=== PATIENT | female | born 1950 | race Caucasian/White ===

== ENCOUNTER 2023-06-19 14:15 | Inpatient (IN) | payer MEDICARE, OTHER ==
[~2023-06-19] VITALS: Ht 162.6 cm; Wt 119.0 kg
[2023-06-19 14:47] LABS: COLLECTION METHOD CATHETER
[2023-06-19 14:55] LABS: BASO # 0.1 K/mm3 (0.0-0.2); BASO % 0.7 % (0.0-2.0); EOS # 0.1 K/mm3 (0.0-0.7); EOS % 0.8 % (0.0-4.0); GRAN % 70.1 % (42.2-75.2); HEMATOCRIT 39.6 % (37.0-47.0); HEMOGLOBIN 12.5 g/dl (12.5-16.0); LYMPH % 22.7 % (20.0-51.0); MEAN CELL VOLUME 91 fl (80.0-100.0); MEAN CORPUSCULAR HEMOGLOBIN 29 pg (27-31); MEAN CORPUSCULAR HGB CONC 32 g/dl (33.0-37.0); MEAN PLATELET VOLUME 11.5 fl (7.4-10.4); MONO # 0.5 K/mm3 (0.1-0.6); MONO % 5.5 % (1.7-9.3); PLATELET COUNT 235 K/mm3 (130-400); RED BLOOD COUNT 4.34 M/mm3 (4.10-5.30); REDCELL DISTRIBUTION WIDTH-CV 13.6 % (11.5-14.5)
[2023-06-19] MEDS ORDERED: Ondansetron 4 MG/2 ML VIAL IV ONE (15:00)
[2023-06-19] MEDS ORDERED: Morphine 4 MG/ML VIAL IV ONE (15:00)
[2023-06-19 15:01] LABS: PH 6.5 (5.0-8.5); URINE APPEARANCE Hazy (CLEAR/HAZY); URINE COLOR Yellow (YELLOW); URINE GLUCOSE 1+ (NEGATIVE); URINE KETONE 1+ (NEGATIVE); URINE NITRATE Positive (NEGATIVE); URINE PROTEIN(semi-quant) Negative (NEGATIVE)
[2023-06-19 15:02] LABS: SQUAMOUS EPITHELIAL 0-2 /hpf (0-10); URINE BACTERIA Moderate /hpf (NONE SEEN); URINE BLOOD 3+ (NEGATIVE)
[2023-06-19 15:08] LABS: ALBUMIN 3.1 gm/dL (3.4-4.8); BILIRUBIN,TOTAL 0.3 mg/dL (0.2-1.2); CALCIUM 9.3 mg/dL (8.4-10.2); CREATININE, serum 0.87 mg/dL (0.57-1.11); TOTAL PROTEIN 8.3 gm/dL (6.2-8.1)
[2023-06-19] MEDS ORDERED: NS 1,000 ML IV ONE (15:30)
[2023-06-19] MEDS ORDERED: cefTRIAXone 1 G in Water For Injection,Sterile 10 ML IV ONE (15:30)
[2023-06-19] MEDS ORDERED: Acetaminophen 325 MG TAB PO ONE (16:15)
[2023-06-19] MEDS ORDERED: metroNIDAZOLE 100 ML IV ONE (16:30)
[2023-06-19] MEDS ORDERED: COZAAR100 MG PO (17:21)
[2023-06-19] MEDS ORDERED: TOPROL XL100 MG PO (17:21)
[2023-06-19 18:07] VITALS: BP 127/76; PULSE 127; TEMP 98.7
[2023-06-19] MEDS ORDERED: *Potassium Replacement Protocol MC SCH (18:30)
[2023-06-19 18:42] VITALS: BP_SYST 127
[2023-06-19 20:00] VITALS: BP 96/54; PULSE 116; TEMP 98.4
--- NOTE | 2023-06-19 20:45 | NUR ---
Pt. laying in bed. Pt. is A&OX3, assessment complete. INT to lt. hand patent. Pt. denies pain or other needs, call light within reach.
[2023-06-19 21:00] VITALS: BP_SYST 107
[2023-06-19 23:21] VITALS: BP 92/55; PULSE 109; TEMP 100
[2023-06-20] VITALS (12 sets, daily range): BP systolic 98–122; BP diastolic 60–74; PULSE 84–116; TEMP 98.4–102.5
--- NOTE | 2023-06-20 03:41 | NUR ---
ANU Moody notified of pt.'s vital signs. Informed that he would review the chart and add orders.
[2023-06-20] MEDS ORDERED: Acetaminophen 325 MG TAB PO PRN (03:45)
[2023-06-20 06:46] LABS: BASO % 0.3 % (0.0-2.0); EOS # 0.1 K/mm3 (0.0-0.7); EOS % 0.4 % (0.0-4.0); GRAN # 11.1 K/mm3 (1.4-6.5); GRAN % 83.4 % (42.2-75.2); HEMOGLOBIN 10.8 g/dl (12.5-16.0); LYMPH # 1.4 K/mm3 (1.2-3.4); LYMPH % 10.6 % (20.0-51.0); MEAN CELL VOLUME 89 fl (80.0-100.0); MEAN CORPUSCULAR HEMOGLOBIN 29 pg (27-31); MEAN CORPUSCULAR HGB CONC 33 g/dl (33.0-37.0); MEAN PLATELET VOLUME 10.1 fl (7.4-10.4); MONO # 0.7 K/mm3 (0.1-0.6); MONO % 4.9 % (1.7-9.3); PLATELET COUNT 175 K/mm3 (130-400); RED BLOOD COUNT 3.73 M/mm3 (4.10-5.30)
[2023-06-20 06:54] LABS: HEMATOCRIT 33.1 % (37.0-47.0)
[2023-06-20 07:08] LABS: ALBUMIN 2.4 gm/dL (3.4-4.8); CALCIUM 8.3 mg/dL (8.4-10.2); CREATININE, serum 0.81 mg/dL (0.57-1.11); MAGNESIUM 1.6 mg/dL (1.6-2.6); POTASSIUM 4.1 mmol/L (3.5-4.5)
[2023-06-20] MEDS ORDERED: Metoclopramide 10 MG TAB PO SCH (08:00)
[2023-06-20] MEDS ORDERED: Famotidine 20 MG TAB PO SCH (08:00)
[2023-06-20] MEDS ORDERED: LR 1,000 ML IV SCH (08:00)
[2023-06-20] MEDS ORDERED: Influenza Virus Vaccine, Hi-Dose Quad '23-24 (65 YR+) 0.7 ML SYRINGE IM SCH (09:00)
--- NOTE | 2023-06-20 09:21 | NUR ---
Wool Hat Finisher attended clinical rounds with the team. TYRA spoke with PT who recommend SNF vs Home Health. SW met with patient to discuss discharge planning. Patient lives alone in [place], but advised her daughter, Karyn lives nearby and checks on her as often as needed. Patient goes to [facility] for primary care and has medications mailed to her home by [employer]. Patient has a rollator and cane that she uses for ambulation. Patient also reported that she uses an office chair to scoot around her home. Patient's bathroom includes grab bars in the bathtub, a tub transfer bench, and handheld shower head. Patient also has a ramp into the home. Patient advised she is independent with transfers, toileting, bathing, and dressing. Patient has groceries delivered to the home. Patient believes she has completed DPOA-HC designating her daughters, Karyn and Bernadette (ph#[phone]). SW discussed PT recommendation for SNF vs HH. Patient is not sure what she wants to do and would like to consider her options. SW provided Medicare.gov list of SNF and HH options for review. Discharge Plan: TBD
[2023-06-20] MEDS ORDERED: Ondansetron 4 MG/2 ML VIAL IV ONE (12:28)
[2023-06-20] MEDS ORDERED: NS 10 ML VIAL IV ONE (12:28)
[2023-06-20] MEDS ORDERED: CENTRUM SILVER CHEW PO (13:22)
[2023-06-20] MEDS ORDERED: THE MEDICINE S200 M2 PO (13:22)
[2023-06-20] MEDS ORDERED: OMEGA-3 1000 MG1 CAP PO (13:23)
[2023-06-20] MEDS ORDERED: [UNRECOGNIZED DRUG - OTHER] PO (13:24)
[2023-06-20] MEDS ORDERED: cefTRIAXone 1 G in Water For Injection,Sterile 10 ML IV SCH (15:00)
[2023-06-20] MEDS ORDERED: cefTRIAXone 2 G in Water For Injection,Sterile 20 ML IV SCH (16:00)
--- NOTE | 2023-06-20 18:00 | NUR ---
ENDOSCOPY CAME UP TO GET THE PATIENT FOR PROCEDURE. PATIENT WAS ASSISTED FROM RECLINER TO BED X3 ASSIST, USED GAITBELT. PATIENT SIGNED CONSENT FORMS AND WAS SENT DOWN TO OR WITH MARITZA HILLSSTRETCHER LEVELER OPERATOR
[2023-06-20] MEDS ORDERED: fentaNYL 50 MCG/ML 2 ML VIAL ONE (18:12)
[2023-06-20] MEDS ORDERED: Meperidine 50 MG/ML 1 ML VIAL IV PRN (18:30)
[2023-06-20] MEDS ORDERED: HYDROmorphone 2 MG/1 ML VIAL IV PRN (18:30)
[2023-06-20] MEDS ORDERED: Ondansetron 4 MG/2 ML VIAL IV PRN (18:30)
[2023-06-20] MEDS ORDERED: fentaNYL 50 MCG/ML 2 ML VIAL IV PRN (18:30)
[2023-06-20] MEDS ORDERED: droPERidol 2.5 MG/ML 2 ML VIAL IV PRN (18:30)
[2023-06-20] MEDS ORDERED: hydrALAZINE 20 MG/ML 1 ML VIAL IV PRN (18:30)
[2023-06-20] MEDS ORDERED: Morphine 4 MG/ML VIAL IV PRN (18:30)
[2023-06-20] MEDS ORDERED: Iohexol 350 - 100 ML VIAL URETER -L ONE (19:06)
[2023-06-20] MEDS ORDERED: Lidocaine 2% (20 MG/ML) 20 ML UROJET UR ONE (19:11)
--- NOTE | 2023-06-20 20:00 | NUR ---
PATIENT BACK ON UNIT FROM [facility] "RADHA" IS AXO X4 AND VS WNL. TELE IS WNL. PUREWICK PLACED AND TETHER FOR STINT GLUED AND INTACT. URINE IS CLEAR AND YELLOW. RADHA DENIES ANY PAIN AT THIS TIME AND IS REQUESTING A SANDWHICH BOX.
[2023-06-20] MEDS ORDERED: Furosemide 40 MG/4 ML VIAL IV ONE (22:30)
[2023-06-21] VITALS (13 sets, daily range): BP systolic 108–138; BP diastolic 61–85; PULSE 71–82; TEMP 97.8–98.7
[2023-06-21 08:16] LABS: BASO % 0.2 % (0.0-2.0); GRAN # 4.4 K/mm3 (1.4-6.5); GRAN % 83.3 % (42.2-75.2); HEMOGLOBIN 11.5 g/dl (12.5-16.0); LYMPH # 0.6 K/mm3 (1.2-3.4); LYMPH % 11.8 % (20.0-51.0); MEAN CELL VOLUME 90 fl (80.0-100.0); MEAN CORPUSCULAR HEMOGLOBIN 29 pg (27-31); MEAN CORPUSCULAR HGB CONC 32 g/dl (33.0-37.0); MONO # 0.2 K/mm3 (0.1-0.6); MONO % 4.1 % (1.7-9.3); PLATELET COUNT 170 K/mm3 (130-400); RED BLOOD COUNT 4.01 M/mm3 (4.10-5.30); REDCELL DISTRIBUTION WIDTH-CV 13.4 % (11.5-14.5)
[2023-06-21 08:17] LABS: HEMATOCRIT 35.9 % (37.0-47.0)
[2023-06-21 08:27] LABS: ALBUMIN 2.5 gm/dL (3.4-4.8); CALCIUM 8.8 mg/dL (8.4-10.2); CREATININE, serum 0.85 mg/dL (0.57-1.11); MAGNESIUM 1.7 mg/dL (1.6-2.6); PHOSPHOROUS 3.1 mg/dL (2.3-4.7); POTASSIUM 4.1 mmol/L (3.5-4.5)
--- NOTE | 2023-06-21 09:11 | NUR ---
Pt in bed with HOB raised. Shift assessment done, no acute changes at this time. Morning medications administered per orders. Pt has no other needs at this time.
--- NOTE | 2023-06-21 10:16 | NUR ---
PT SITTING UP IN BED UPON ENTERING. ASSESSMENT DONE, MEDS GIVEN BY ITALIA MANCERA ZANDERN STUDENT. PT DENIES PAIN OR SHORTNESS OF BREATH AT THIS TIME. PT ON 1L NASAL CANNULA. INT TO LEFT HAND PATENT. ALL LOBES DIMINISHED. PUREWICK IN PLACE DRAINING TO LOW SUCTION. BILATERAL LOWER EXTREMITY ERYTHEMA NOTED. BLISTER NOTED TO LEFT CALF, NO DRAINAGE NOTED. UROLOGY STENT STRING TAPED TO PTS LOWER ABDOMEN AND IS CLEAN DRY AND INTACT. PT DENIES NEEDS AT THIS TIME. BED IN LOWEST POSITION, CALL LIGHT IN REACH, BED ALARM ON.
[2023-06-21] MEDS ORDERED: Albuterol/Ipratropium 3 MG-0.5 MG/3 ML Neb Soln IH PRN (10:45)
--- NOTE | 2023-06-21 13:08 | NUR ---
Medical Cash Poster met with patient to follow up on discharge planning. Patient stated she is feeling weaker than normal and would like to consider SNF, but not make a final decision today. Patient is agreeable to have referrals sent to [facility], and [facility] to determine what her options would be. TYRA faxed referrals to all three. TYRA then contacted patient's daughter, Karyn (ph#[phone]) to provide update. Karyn advised she would be supportive of SNF. TYRA received a message from Tracey at [facility] that they are full at this time. Roland at [facility] accepts referral. Discharge Plan: Patient considering SNF options
--- NOTE | 2023-06-21 13:43 | NUR ---
End of student nurse shift. Report given to charge nurse. Pt sitting in chair with no needs at this time.
--- NOTE | 2023-06-21 15:01 | NUR ---
D: Initial visit: Medical Technologist Hematology stopped by room on rounds. Pt was resting and content. A: Pt states she no needs right now and that she is feeling better. Pt appreciated the visit. P: Medical Technologist Hematology informed pt that if she needed anything to let her nurse know. Medical Technologist Hematology will follow up as needed.
--- NOTE | 2023-06-21 15:03 | NUR ---
[facility] accepted referral.
--- NOTE | 2023-06-21 18:38 | NUR ---
PT SITTING IN CHAIR UPON ENTERING, PUREWICK IN PLACE AND PT ON 1L NASAL CANNULA. CHAIR ALARM ON, CALL LIGHT IN REACH
--- NOTE | 2023-06-21 19:21 | NUR ---
REPORT GIVEN TO CAROLINE, RN
--- NOTE | 2023-06-21 21:11 | NUR ---
UPON SHIFT ASSESSMENT, YESSY DICKSON" WAS IN BEDSIDE RECLINER EATING DINNER TRAY. DAUGHTER AND GRANDSON WERE VISITING IN ROOM. PUREWICK DRAINIING CLEAR YELLOW URINE. STENT TETHER INTACT AND PATIENT STATES SHE, "FEELS SO MUCH BETTER." BLLE EDEMA STILL PRESENT +2 WITH DISCOLORATION AND BLISTERS-NON WEEPING. EDEMA, HOWEVER, IS IMPROVED. RADHA IS CHEERFUL AND LUNGS HAD FINE CRACKLES IN UPPER LOBES THAT CLEARED WITH COUGH. O2 NC IS NOW AT 0.5 L AND SHE IS SATING 95%. SHE DENIES SOA, CHEST PAIN, FLANK PAIN AND IS PLESANT AND AXO X 4. SHE STATES NO NEEDS AT THIS TIME. CAHIR ALARM ON, CALL LIGHT WITHIN REACH
--- NOTE | 2023-06-21 23:00 | NUR ---
While providing bed bath, excoriation was noted in panus folds. Interdry placed.
[2023-06-22 01:00] VITALS: BP_SYST 142
[2023-06-22 02:45] VITALS: BP 142/88; PULSE 67; TEMP 97.7
[2023-06-22 05:00] VITALS: BP_SYST 142
[2023-06-22 07:01] LABS: BASO % 0.2 % (0.0-2.0); EOS % 0.4 % (0.0-4.0); GRAN # 6.2 K/mm3 (1.4-6.5); GRAN % 65.3 % (42.2-75.2); HEMOGLOBIN 11.5 g/dl (12.5-16.0); LYMPH # 2.3 K/mm3 (1.2-3.4); MEAN CELL VOLUME 89 fl (80.0-100.0); MEAN CORPUSCULAR HEMOGLOBIN 29 pg (27-31); MEAN CORPUSCULAR HGB CONC 33 g/dl (33.0-37.0); MEAN PLATELET VOLUME 10.4 fl (7.4-10.4); MONO # 0.9 K/mm3 (0.1-0.6); MONO % 9.7 % (1.7-9.3); PLATELET COUNT 182 K/mm3 (130-400); RED BLOOD COUNT 3.99 M/mm3 (4.10-5.30); REDCELL DISTRIBUTION WIDTH-CV 13.3 % (11.5-14.5)
[2023-06-22 07:02] LABS: HEMATOCRIT 35.4 % (37.0-47.0)
[2023-06-22 07:21] LABS: ALBUMIN 2.5 gm/dL (3.4-4.8); CALCIUM 9.3 mg/dL (8.4-10.2); CREATININE, serum 0.75 mg/dL (0.57-1.11); MAGNESIUM 1.8 mg/dL (1.6-2.6); PHOSPHOROUS 3.1 mg/dL (2.3-4.7); POTASSIUM 4.3 mmol/L (3.5-4.5)
--- NOTE | 2023-06-22 07:35 | NUR ---
YESSY DICKSON" REMAINED AWAKE THROUGHOUT THE NIGHT. IT WAS STATED BY THE PATIENT, "THIS IS NORMAL. 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
[2023-06-22 07:36] VITALS: BP 136/80; PULSE 70; TEMP 97.6
--- NOTE | 2023-06-22 08:00 | NUR ---
Patient sitting up in bed, A&Ox4. VSS. IV CDI. Reports pain in back, that is chronic. Purewick in place. Call light within reach
[2023-06-22] MEDS ORDERED: Losartan 50 MG TAB PO SCH (09:31)
[2023-06-22] MEDS ORDERED: CIPRO 500MG TA500 MG PO (09:55)
[2023-06-22] MEDS ORDERED: cefTRIAXone 2 G in Water For Injection,Sterile 20 ML IV ONE (10:00)
--- NOTE | 2023-06-22 11:18 | NUR ---
Report called to [facility]. IV removed, tip intact, gauze and coban applied. PAtient assisted with getting dressed and into the wheelchair. No further needs expressed. Personal belongings with the patient. No further needs expressed
--- NOTE | 2023-06-22 13:41 | NUR ---
Technology Applications Consultant attended clinical rounds with the team and patient is ready for discharge. Hospitalist encouraged patient to consider SNF and explained it's benefits. Patient is agreeable to this. SW explained to patient that both [facility] and [facility] can accept her. Patient would prefer [facility]. SW contacted Husam at [facility] and faxed discharge orders. SW followed up with patient to provide estimated transport time and patient was on speakerphone with her daughter, Salvatore who is in agreement. Discharge Plan: [facility] SNF
== END 2023-06-22 11:20 | DRG 660 ==
LOC: COL.ER 14:15 → MEDICAL 17:13
PROVIDERS: Physician Assistant; ADMIT Internal Medicine
PROC: 0T748DZ Dilation of Left Kidney Pelvis with Intraluminal Device, Via Natural or Artificial Opening Endoscopic (ICD-10-PCS; principal; 2023-06-19)
PROC: BT1F1ZZ Fluoroscopy of Left Kidney, Ureter and Bladder using Low Osmolar Contrast (ICD-10-PCS; 2023-06-19)
DX: N39.0 Urinary tract infection, site not specified (principal); N20.1 Calculus of ureter; I10 Essential (primary) hypertension; R09.02 Hypoxemia
CPT/HCPCS: C1769; C2617; J0696; J1650; J1836; J1940; J2270; J2405; J2704; J3010; J7030; J7120; Q3014; Q9967